=== PATIENT | female | born 1965 | race African-American/Black ===

== ENCOUNTER → 2018-11-01 | Outpatient (CLI) | payer OTHER ==
--- NOTE | 2018-11-01 13:51 | XR ---
EXAMINATION TYPE: XR ribs LT DATE OF EXAM: 11/01/2018 COMPARISON: NONE HISTORY: Fall with subsequent left rib pain TECHNIQUE: Frontal and oblique views of the left ribs were obtained. FINDINGS: There is mild acromioclavicular arthropathy on the left. There is a nondisplaced acute fracture of the anterior lateral margin of rib 7 on the left as well as the anterior margin of rib 9 on the left. No chronic healed fracture deformities are seen. The fract ures are noncomminuted. The visualized left lung is well aerated. IMPRESSION: Acute nondisplaced noncomminuted fractures of the anterolateral seventh left rib and ante rior left ninth rib.
== END | disposition home or self-care (01) ==
LOC: RADXRMAIN 13:13
PROVIDERS: ATTEND Physician Assistant
DX: S22.42XA Multiple fractures of ribs, left side, initial encounter for closed fracture (principal)

== ENCOUNTER → 2021-05-13 | Outpatient (CLI) | payer OTHER ==
--- NOTE | 2021-05-13 16:02 | US ---
EXAMINATION TYPE: US thyroid st tissue head/neck DATE OF EXAM: 05/13/2021 COMPARISON: NONE CLINICAL HISTORY: E03.9 HYPOTHYROIDISM. GLAND SIZE: Right Lobe: 3.8x1.0x1.3 cm Overall Parenchyma: homogenous Left Lobe: 4.8x1.2x1.1 cm Overall Parenchyma: homogeneous Isthmus Thickness: 0.3 cm NODULES RIGHT: # of nodules measured on right: 0 LEFT: # of nodules measured on left: 2 1. 1.9 X 1.3 x 1.1 cm, lower mid, cystic or almost completely cystic, anechoic nodule, which is wid er than tall, with smooth margins, without echogenic foci. Prior size: NO PRIOR 2. 0.3 X 0.2 x 0.2 cm, lower mid, cystic or almost completely cystic, anechoic nodule, which is wi rei than tall, with smooth margins, with echogenic calcified rim Prior size: NO PRIOR ISTHMUS: # of nodules measured in the isthmus: 0 Bilateral neck scanned, no evidence of lymphadenopathy. IMPRESSION: Nonspecific thyroid nodularity.
== END | disposition home or self-care (01) ==
LOC: RADUSWWP 15:19
PROVIDERS: ATTEND Family Medicine
DX: E04.2 Nontoxic multinodular goiter (principal)
CPT/HCPCS: 76536

== ENCOUNTER → 2023-01-14 | Outpatient (CLI) | payer OTHER ==
--- NOTE | 2023-01-14 15:27 | US ---
EXAMINATION TYPE: US thyroid st tissue head/neck DATE OF EXAM: 01/14/2023 COMPARISON: US 05/13/21 CLINICAL INDICATION: Female, 57 years old with history of E03.9 HYPOTHYROIDISM; Hypothyroidism. Patie nt is on thyroid medication. GLAND SIZE: Right Lobe: 4.3 x 1.4 x 1.0 cm Overall Parenchyma: Slightly heterogeneous Left Lobe: 4.8 x 1.2 x 1.0 cm Overall Parenchyma: Slightly heterogeneous. Isthmus Thickness: 0.23 cm NODULES RIGHT: # of nodules measured on right: 0 LEFT: # of nodules measured on left: 2 1. 0.5 X 0.4 x 0.4 cm, lower mid, Prior size: 0.3 x 0.2 x 0.2 cm TIRADS Score: 6 TIRADS Category 4: Moderately Suspicious Composition: Solid or almost completely solid (2 points). Echogenicity: Hypoechoic (2 points). Shape: Wider than tall (0 points). Margin: Smooth (0 points). Echogenic foci: Peripheral (rim) calcifications (2 points) Recommendation: If >1.5cm: FNA; If >1cm: Follow up at 1,2, 3,5 years 2. 1.8 X 1.4 x 0.7 cm, lower mid, Prior size: 1.9 x 1.3 x 1.1 cm TIRADS Score: 0 TIRADS Category 1: Benign Composition: Cystic or almost completely cystic (0 points). Recommendation: No FNA ISTHMUS: # of nodules measured in the isthmus: 0 Bilateral neck scanned, no evidence of lymphadenopathy. IMPRESSION: Bilateral thyroid nodules that are not significantly changed from prior in 2020 given differences in technique. TI-RADS recommendations as described above.
--- NOTE | 2023-01-15 19:10 | MM ---
Reason for Exam: Screening (asymptomatic). Last mammogram was performed 2 year(s) and 6 month(s) ago. Patient History: Menarche at age 11. First Full-Term at age 14. Postmenopausal. Risk Values: Chrissy 5 year model risk: 1.0%. NCI Lifetime model risk: 5.5%. Prior Study Comparison: 05/09/2019 Bilateral Screening Mammogram, [facility]. 07/05/2020 Bilateral Screening Mammogram, [facility]. Tissue Density: There are scattered fibroglandular densities. Findings: Analyzed By CAD. There is no suspicious group of microcalcifications or new suspicious mass in either breast. Overall Assessment: Negative, BI-RAD 1 Management: Screening Mammogram of both breasts in 1 year. . Patient should continue monthly self-breast exams. A clinical breast exam by your physician is recommended on an annual basis. This exam should not preclude additional follow-up of suspicious palpable abnormalities. Note on Chrissy scores and lifetime risk: 1. A Chrissy score greater than 3% is considered moderate risk. If this is the case, consider specialist referral to assess eligibility for a risk reducing agent. 2. If overall lifetime risk for the development of breast cancer is 20% or higher, the patient may qualify for future screening with alternating mammogram and breast MRI. Electronically signed and approved by: Jose Ramon Tobin M.D. Radiologist
== END | disposition home or self-care (01) ==
LOC: RADMAMWWP 14:15
PROVIDERS: ATTEND Family Medicine
DX: Z12.31 Encounter for screening mammogram for malignant neoplasm of breast (principal); E04.2 Nontoxic multinodular goiter; E03.9 Hypothyroidism, unspecified; Z78.0 Asymptomatic menopausal state
CPT/HCPCS: 76536; 77063; 77067

== ENCOUNTER → 2024-02-11 | Outpatient (CLI) | payer OTHER ==
--- NOTE | 2024-02-16 12:06 | MM ---
Reason for Exam: Screening (asymptomatic). Last mammogram was performed 1 year(s) and 1 month(s) ago. Patient History: Menarche at age 11. First Full-Term at age 14. Postmenopausal. Risk Values: Chrissy 5 year model risk: 1.0%. NCI Lifetime model risk: 5.3%. Prior Study Comparison: 05/09/2019 Bilateral Screening Mammogram, [facility]. 07/05/2020 Bilateral Screening Mammogram, [facility]. 01/14/2023 Bilateral MG 3D screening mammo w/cad, [facility]. Tissue Density: There are scattered areas of fibroglandular density. Findings: Analyzed By CAD. Right breast: There is no suspicious group of microcalcifications or new suspicious mass. Left breast: There is no suspicious group of microcalcifications or new suspicious mass. Overall Assessment: Negative, BI-RAD 1 Management: Screening Mammogram of both breasts in [address] [facility] will attempt to contact patient to return for supplemental views and ultrasound if indicated. Patient should continue monthly self-breast exams. A clinical breast exam by your physician is recommended on an annual basis. This exam should not preclude additional follow-up of suspicious palpable abnormalities. Note on Chrissy scores and lifetime risk: 1. A Chrissy score greater than 3% is considered moderate risk. If this is the case, consider specialist referral to assess eligibility for a risk reducing agent. 2. If overall lifetime risk for the development of breast cancer is 20% or higher, the patient may qualify for future screening with alternating mammogram and breast MRI. Electronically signed and approved by: Ramakrishna Degroot DO
== END | disposition home or self-care (01) ==
LOC: RADMAMWWP 10:14
PROVIDERS: ATTEND Family Medicine
DX: Z12.31 Encounter for screening mammogram for malignant neoplasm of breast (principal); Z78.0 Asymptomatic menopausal state
CPT/HCPCS: 77063; 77067